=== PATIENT | female | born 1985 | race American Indian/Alaskan Native ===

== ENCOUNTER 2018-11-23 19:46 | Emergency (ER) | payer OTHER ==
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
[2018-11-24 00:51] VITALS: BP 126/82
== END 2018-11-24 00:05 | disposition home or self-care (01) ==
LOC: ED 19:46
DX: S90.811A Abrasion, right foot, initial encounter (principal); M25.562 Pain in left knee; X58.XXXA Exposure to other specified factors, initial encounter; Y93.89 Activity, other specified; Y92.89 Other specified places as the place of occurrence of the external cause; Y99.8 Other external cause status